=== PATIENT | male | born 1995 | race African-American/Black ===

== ENCOUNTER 2018-05-09 12:07 | Emergency (ER) | payer SELFPAY ==
[2018-05-09 12:58] LABS: #Eosinphils 0.1 thou/uL (0.0-0.7); #Lymphocytes 1.5 thou/uL (1.20-3.40); #Monocytes 0.3 thou/uL (0.11-0.59); #Neutrophils 3.1 thou/uL (1.40-6.50); %Basophils 0.6 % (0.0-1.0); %Eosinophils 1.1 % (0.0-10.0); %Lymphocytes 29.8 % (21.0-51.0); %Monocytes 5.7 % (0.0-10.0); %Neutrophils 62.7 % (42.0-75.0); Hemoglobin 14.3 g/dL (14.0-18.0); Mean Corpuscular HGB CONC 32.6 g/dL (32.0-36.0); Mean Corpuscular Hemoglobin 29.9 pg (27.0-31.0); Mean Corpuscular Volume 91.8 fL (78.0-98.0); Platelet Count 329 thou/uL (130-400); RBC Distribution Width 13.6 % (11.5-14.5); Red Blood Cell (RBC) Count 4.78 mill/uL (4.70-6.10); White Blood Cell (WBC) Count 4.9 thou/uL (4.8-10.8)
[2018-05-09 13:10] LABS: Medtox Reader # READER 1; THC/Cannabinoid Screen Detected (NotDetected)
[2018-05-09 13:11] LABS: Amphetamine Not Detected (NotDetected); Barbiturates Screen Not Detected (NotDetected); Benzodiazepine Screen Not Detected (NotDetected); Cocaine Metabolite Screen Not Detected (NotDetected); Medtox Control Line Valid? VALID (VALID); Methadone Not Detected (NotDetected); Methamphetamine Not Detected (NotDetected); Opiate Screen Not Detected (NotDetected); Oxycodone Screen Not Detected (NotDetected); Phencyclidine (PCP) Detected (NotDetected); Tricyclic Screen Not Detected (NotDetected)
[2018-05-09 13:13] LABS: ALT (SGPT) 37 U/L (8-55); AST (SGOT) 39 U/L (5-34); Albumin 4.5 g/dL (3.5-5.0); Alkaline Phosphatase 57 U/L (40-150); Anion Gap 13 mmol/L (10-20); BUN (Urea Nitrogen) 7 mg/dL (8.9-20.6); Bilirubin, Total 0.6 mg/dL (0.2-1.2); Calc. Creatinine Clearance 0 mL/min (70-130); Calcium 9.8 mg/dL (7.8-10.44); Carbon Dioxide 26 mmol/L (22-29); Chloride 107 mmol/L (98-107); Estimated GFR-MDRD Greater than 90; Globulin 2.7 g/dL (2.4-3.5); Glucose 91 mg/dL (70-105); Potassium 4.4 mmol/L (3.5-5.1); Protein, Total 7.2 g/dL (6.0-8.3); Sodium 142 mmol/L (136-145)
[2018-05-09 13:14] LABS: Acetaminophen Less than 6.0 mcg/mL (10.0-30.0); Alcohol Less than 10 mg/dL (Less than 10); CK (CPK) 1215 U/L (30-200); Salicylate Less than 8.0 mg/dL (15.0-30.0)
--- NOTE | 2018-05-09 13:56 | CT ---
CT BRAIN: Date: 05-09-18 Provided Clinical History: Altered mental status, syncope. FINDINGS: The ventricular system appears normal in size and morphology. There is no evidence for intracranial h emorrhage or mass effect. The extracranial soft tissues and osseous structures demonstrate an unremar kable CT appearance. IMPRESSION: No evidence for intracranial hemorrhage or mass effect. POS: [facility]
--- NOTE | 2018-05-09 13:57 | CT ---
CT CERVICAL SPINE: Date: 05-09-18 Provided Clinical History: Syncope. Throat pain. FINDINGS: There is no evidence for fracture or traumatic subluxation. No prevertebral soft tissue swelling appa rent. Visualized lung apices appear clear. IMPRESSION: No evidence for fracture or traumatic subluxation. POS: [facility]
== END 2018-05-09 14:51 | disposition home or self-care (01) ==
LOC: ERS 12:07
DX: F12.10 Cannabis abuse, uncomplicated (principal); F16.10 Hallucinogen abuse, uncomplicated; F17.210 Nicotine dependence, cigarettes, uncomplicated; F20.9 Schizophrenia, unspecified
CPT/HCPCS: 36415; 70450; 72125; 80053; 80306; 80307; 82550; 84484; 85025

== ENCOUNTER 2018-06-02 19:44 | Inpatient (IN) | payer SELFPAY ==
[2018-06-02] MEDS ORDERED: Midazolam HCl 5 mg/ml Vial ONE (19:59)
[2018-06-02] MEDS ORDERED: KETAMINE 100 MG/ML (5ML VIAL) ONE (20:00)
[2018-06-02] MEDS ORDERED: Rocuronium Bromide 10 MG/ML (10ML VIAL) ONE (20:01)
[2018-06-02] MEDS ORDERED: fentaNYL Citrate/PF 2,000 MCG in Sodium Chloride 0.9% 60 ML IV SCH ×2 (20:02→22:37)
[2018-06-02] MEDS ORDERED: Fentanyl 100 MCG/2 ML VIAL ONE (20:16)
[2018-06-02 20:39] LABS: #Basophils 0.1 thou/uL (0.0-0.2); #Eosinphils 0.1 thou/uL (0.0-0.7); #Monocytes 0.7 thou/uL (0.11-0.59); %Basophils 0.8 % (0.0-1.0); %Eosinophils 1.3 % (0.0-10.0); %Monocytes 10.6 % (0.0-10.0); %Neutrophils 58.2 % (42.0-75.0); Hemoglobin 13.5 g/dL (14.0-18.0); Mean Corpuscular HGB CONC 33.4 g/dL (32.0-36.0); Mean Corpuscular Volume 92.8 fL (78.0-98.0); Mean Platelet Volume 8.9 fL (7.4-10.4); Platelet Count 240 thou/uL (130-400); Red Blood Cell (RBC) Count 4.35 mill/uL (4.70-6.10); White Blood Cell (WBC) Count 6.8 thou/uL (4.8-10.8)
--- NOTE | 2018-06-02 20:41 | RAD ---
CHEST ONE VIEW: 06/02/18 HISTORY: Tube placement. Ketamine overdose. COMPARISON: 12/23/12. FINDINGS: Endotracheal tube beyond the level of the clavicles. Nasogastric tube terminates in the left upper qu adrant. Normal cardiac silhouette. The lungs and pleural spaces are clear. No pneumothorax or osseous abnormalities. IMPRESSION: 1. No acute cardiopulmonary process. 2. Lines and tubes as above. POS: [facility]
[2018-06-02 20:51] LABS: Actual Bicarbonate (HCO3a) 26.3 mEq/L (22-28); Analyzer IN Cardio ER; Base Excess (BEa) 0.3 mEq/L (-2.0 to +3.0); CO2 Tension 48.2 mmHg (35.0-45.0); Calcium, Ionized 1.16 mmol/L (1.12-1.30); Carboxyhemoglobin (COHb) 2.8 gm% (0.0-3.0); Hemoglobin (Hb) 13.1 g/dL (14.0-18.0); O2 Tension (PaO2) 78.6 mmHg (80.0-100.0); Puncture Site RBRACH; pH, Arterial 7.36 (7.35-7.45)
[2018-06-02 20:57] LABS: ALT (SGPT) 74 U/L (8-55); AST (SGOT) 73 U/L (5-34); Albumin 4.1 g/dL (3.5-5.0); Alkaline Phosphatase 54 U/L (40-150); Anion Gap 13 mmol/L (10-20); BUN (Urea Nitrogen) 14 mg/dL (8.9-20.6); Bilirubin, Total 0.5 mg/dL (0.2-1.2); Calc. Creatinine Clearance 0 mL/min (70-130); Calcium 9.5 mg/dL (7.8-10.44); Carbon Dioxide 27 mmol/L (22-29); Chloride 107 mmol/L (98-107); Estimated GFR-MDRD Greater than 90; Globulin 2.4 g/dL (2.4-3.5); Glucose 83 mg/dL (70-105); Magnesium 1.9 mg/dL (1.6-2.6); Potassium 4.6 mmol/L (3.5-5.1); Protein, Total 6.5 g/dL (6.0-8.3); Sodium 142 mmol/L (136-145)
[2018-06-02 21:00] LABS: Acetaminophen Less than 6.0 mcg/mL (10.0-30.0); Alcohol Less than 10 mg/dL (Less than 10); CK (CPK) 2317 U/L (30-200); Salicylate Less than 8.0 mg/dL (15.0-30.0)
--- NOTE | 2018-06-02 21:08 | CT ---
NONCONTRAST HEAD CT 06/02/18 COMPARISON: 05/09/18. HISTORY: Overdose. FINDINGS: No parenchymal hemorrhage. No extra-axial hematoma. No midline shift. Basilar cisterns are patent. Br ain volume, age appropriate. Cortical jenkins-white matter differentiation is preserved. Ventricles and sulci are patent and symmetric. Intact calvarium. IMPRESSION: No acute intracranial process. POS: [facility]
[2018-06-02 21:20] LABS: Bilirubin Small (Negative); Blood, Urine Negative (Negative); Clarity CLEAR (Clear); Glucose, Urine (Dipstick) Negative (Negative); Leukocyte Negative (Negative); Nitrite Negative (Negative); Protein, Urine (Dipstick) Trace mg/dL (Neg-Trace); Specific Gravity, Urine 1.029 (1.002-1.036); pH, Urine 6.5 (5.0-9.0)
[2018-06-02 21:25] LABS: Amphetamine Not Detected (NotDetected); Barbiturates Screen Not Detected (NotDetected); Benzodiazepine Screen Not Detected (NotDetected); Cocaine Metabolite Screen Detected (NotDetected); Medtox Control Line Valid? VALID (VALID); Medtox Reader # READER 4; Methadone Not Detected (NotDetected); Methamphetamine Not Detected (NotDetected); Opiate Screen Not Detected (NotDetected); Oxycodone Screen Not Detected (NotDetected); Phencyclidine (PCP) Detected (NotDetected); THC/Cannabinoid Screen Detected (NotDetected); Tricyclic Screen Not Detected (NotDetected)
[2018-06-02] MEDS ORDERED: Propofol 1,000 MG/100 ML VIAL IV ONE (21:41)
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
[2018-06-02] MEDS ORDERED: Fentanyl BOLUS 250 ML IVPB PRN ×2 (22:15→22:37)
[2018-06-02] MEDS ORDERED: Morphine 2 MG/ML SYRINGE SLOW IVP PRN ×2 (22:15→22:37)
[2018-06-02] MEDS ORDERED: Propofol 1,000 MG/100 ML VIAL IV PRN ×2 (22:15→22:37)
[2018-06-02] MEDS ORDERED: Sodium Chloride 0.45% 1,000 ML IV SCH (22:15)
[2018-06-02] MEDS ORDERED: DISCONTINUE PREVIOUS NARCOTIC PAIN MEDICATIONS AND BENZODIAZEPINES FS SCH ×2 (22:15→22:37)
[2018-06-02] MEDS ORDERED: Propofol BOLUS 1,000 MG/100 ML VIAL IV PRN ×2 (22:15→22:37)
[2018-06-02] MEDS ORDERED: Lorazepam 2 MG/ML VIAL SLOW IVP PRN ×2 (22:15→22:37)
[2018-06-02] MEDS ORDERED: Ventilator Sedation Protocol 1 EACH FS SCH (22:32)
--- NOTE | 2018-06-02 22:43 | PDOC.EVN ---
Event Note - Event Note Event Note: Date/Time: 06/02/18 6617 I personally evaluated the patient and discussed the management with Dr. Biswas and Dr Najera at time of admission. H&P still pending. I will revie wand sign when ready. I agree with the History, Examination, Assessment and Plan as discussed. Acute dilirium/combativeness due to drug use and resulting in rhabdomyelitis. Sedation with mechanical ventilation initiated in the ER. IV fluids resuscitation. Vitals are stable.
[2018-06-02] MEDS: Lactated Ringer's 1,000 ML IV SCH (23:08)
[2018-06-03] MEDS: Lactated Ringer's 1,000 ML IV SCH ×5 (03:14→20:19)
[2018-06-03 05:33] LABS: #Basophils 0.1 thou/uL (0.0-0.2); #Eosinphils 0.1 thou/uL (0.0-0.7); #Lymphocytes 2.6 thou/uL (1.20-3.40); #Monocytes 0.6 thou/uL (0.11-0.59); #Neutrophils 4.8 thou/uL (1.40-6.50); %Basophils 0.6 % (0.0-1.0); %Eosinophils 0.8 % (0.0-10.0); %Lymphocytes 32.2 % (21.0-51.0); %Neutrophils 59.4 % (42.0-75.0); Mean Corpuscular HGB CONC 31.4 g/dL (32.0-36.0); Mean Corpuscular Hemoglobin 29.1 pg (27.0-31.0); Mean Corpuscular Volume 92.8 fL (78.0-98.0); Platelet Count 212 thou/uL (130-400); RBC Distribution Width 14.1 % (11.5-14.5); Red Blood Cell (RBC) Count 4.12 mill/uL (4.70-6.10); White Blood Cell (WBC) Count 8.1 thou/uL (4.8-10.8)
[2018-06-03 05:50] LABS: Anion Gap 13 mmol/L (10-20); BUN (Urea Nitrogen) 10 mg/dL (8.9-20.6); Calc. Creatinine Clearance 191 mL/min (70-130); Calcium 8.6 mg/dL (7.8-10.44); Carbon Dioxide 25 mmol/L (22-29); Chloride 107 mmol/L (98-107); Estimated GFR-MDRD Greater than 90; Glucose 89 mg/dL (70-105); Potassium 3.7 mmol/L (3.5-5.1); Sodium 141 mmol/L (136-145)
[2018-06-03 06:03] LABS: CK (CPK) 5275 U/L (30-200)
[2018-06-03 06:48] LABS: Actual Bicarbonate (HCO3a) 25.2 mEq/L (22-28); Analyzer IN Cardio ER; Base Excess (BEa) 1.5 mEq/L (-2.0 to +3.0); CO2 Tension 36.6 mmHg (35.0-45.0); Calcium, Ionized 1.16 mmol/L (1.12-1.30); Carboxyhemoglobin (COHb) 0.4 gm% (0.0-3.0); O2 Tension (PaO2) 141.5 mmHg (80.0-100.0); Potassium - ABG Lab 3.41 mmol/L (3.70-5.30); pH, Arterial 7.46 (7.35-7.45)
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
[2018-06-03 06:58] LABS: Puncture Site RBA
[2018-06-03] MEDS ORDERED: Enoxaparin Sodium 40 MG/0.4 ML SYRINGE SC SCH (09:00)
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
[2018-06-03] MEDS ORDERED: DC Sedation Protocol FS ONE (10:16)
[2018-06-03] MEDS ORDERED: Acetaminophen 325 MG TAB PO PRN (17:59)
[2018-06-03] MEDS ORDERED: Ondansetron ODT 4 MG TAB PO PRN (17:59)
--- NOTE | 2018-06-03 19:24 | RAD ---
RIGHT SHOULDER THREE VIEWS 06/03/18 INDICATION: Shoulder pain. IMPRESSION: No acute fracture or subluxation is evident. The visualized right lung appears within normal limits. POS: [facility]
[2018-06-04] MEDS: Lactated Ringer's 1,000 ML IV SCH (02:55)
--- NOTE | 2018-06-04 06:17 | PDOC.FM ---
- Subjective Subjective: No overnight events. Has moved to medical floor and feeling much better. Tolerating PO intake. Denies shortness of breath. - Objective MAR Reviewed: Yes Vital Signs & Weight: Vital Signs (12 hours) Temp Pulse Resp BP Pulse Ox 06/04/18 05:19 98.4 F 85 18 115/72 100 06/04/18 00:37 99.3 F 100 18 131/81 97 06/03/18 20:00 99.6 F 98 18 132/77 98 Weight Weight 97.2 kg Most Recent Monitor Data Heart Rate from ECG 92 NIBP 167/107 NIBP BP-Mean 127 Respiration from ECG 22 SpO2 98 I&O: 06/02/18 06/03/18 06/04/18 06:59 06:59 06:59 Intake Total 1642 2597.4 Output Total 735 3430 Balance 907 -832.6 Result Diagrams: 06/04/18 08:06 06/04/18 08:06 Phys Exam - Physical Examination Constitutional: NAD HEENT: moist MMs Neck: supple Respiratory: no wheezing, clear to auscultation bilateral Cardiovascular: RRR, no significant murmur Gastrointestinal: soft, non-tender, positive bowel sounds Musculoskeletal: no edema Neurological: moves all 4 limbs Psychiatric: normal affect, A&O x 3 Skin: cap refill <2 seconds Dx/Plan (1) PCP (phencyclidine) abuse Code(s): F16.10 - HALLUCINOGEN ABUSE, UNCOMPLICATED Status: Acute (2) Rhabdomyolysis Code(s): M62.82 - RHABDOMYOLYSIS Status: Acute (3) Schizophrenia Code(s): F20.9 - SCHIZOPHRENIA, UNSPECIFIED Status: Acute (4) Substance abuse Code(s): F19.10 - OTHER PSYCHOACTIVE SUBSTANCE ABUSE, UNCOMPLICATED Status: Acute - Plan Plan: 23yo male with pmh schizophrenia admitted for acute PCP intoxication and rhabdomyolysis PCP intoxication - Intubated 06/02-3/8 - Off sedation, stable Schizophrenia - Not currently on meds - [facility] referral on discharge Rhabdomyolysis - Patient was found down on road - CK 2300-> 5275. Will recheck prior to d/c - Continue IVF Multidrug abuse - UDS positive for cocaine and marijuana, avoid B-reji Code Status: FULL DVT ppx: SCDs
[2018-06-04 08:33] LABS: #Eosinphils 0.1 thou/uL (0.0-0.7); #Lymphocytes 1.6 thou/uL (1.20-3.40); #Monocytes 0.6 thou/uL (0.11-0.59); #Neutrophils 7.6 thou/uL (1.40-6.50); %Basophils 0.4 % (0.0-1.0); %Eosinophils 0.6 % (0.0-10.0); %Lymphocytes 16.1 % (21.0-51.0); %Monocytes 6.2 % (0.0-10.0); %Neutrophils 76.7 % (42.0-75.0); Hemoglobin 13.7 g/dL (14.0-18.0); Mean Corpuscular HGB CONC 32.3 g/dL (32.0-36.0); Mean Corpuscular Hemoglobin 28.9 pg (27.0-31.0); Mean Corpuscular Volume 89.5 fL (78.0-98.0); Mean Platelet Volume 8.8 fL (7.4-10.4); Platelet Count 243 thou/uL (130-400); RBC Distribution Width 13.9 % (11.5-14.5); Red Blood Cell (RBC) Count 4.73 mill/uL (4.70-6.10); White Blood Cell (WBC) Count 9.9 thou/uL (4.8-10.8)
[2018-06-04 08:59] LABS: ALT (SGPT) 92 U/L (8-55); AST (SGOT) 139 U/L (5-34); Albumin 4.1 g/dL (3.5-5.0); Alkaline Phosphatase 62 U/L (40-150); Anion Gap 13 mmol/L (10-20); BUN (Urea Nitrogen) 6 mg/dL (8.9-20.6); Bilirubin, Total 1.6 mg/dL (0.2-1.2); Calc. Creatinine Clearance 152 mL/min (70-130); Calcium 9.6 mg/dL (7.8-10.44); Carbon Dioxide 26 mmol/L (22-29); Chloride 103 mmol/L (98-107); Estimated GFR-MDRD Greater than 90; Globulin 2.9 g/dL (2.4-3.5); Glucose 143 mg/dL (70-105); Potassium 3.7 mmol/L (3.5-5.1); Sodium 138 mmol/L (136-145)
[2018-06-04 09:05] LABS: CK (CPK) Greater than 4000 U/L (30-200)
[2018-06-04 12:45] VITALS: BP 107/72; TEMP 98.3
--- NOTE | 2018-06-06 11:14 | PRG ---
DATE OF SERVICE: 06/04/2018 ADDENDUM: Please see the note from Dr. Clotilde Piedra, for which I agree. The patient was seen, evaluated, and discussed with the residents by the bedside. This gentleman is fine now and he is extubated. Basically, he is admitted with a PCP and cocaine overdose for which he became violent on and ended up needed to be intubated, but now has been extubated for 24 hours. It sounds like he is back to baseline. There is some question if he may have some underlying schizophrenia or similar, but with residents talked to him and it sounds like more just anger management issues and maybe anxiety but an explosiveness, but nothing really sounds like truly psychosis, but we did get MHMR involved, but his CK is elevated after being down for a long time and then something wrestling a lot when he was violent, but nothing wrong with his kidney function. There is no reason to be worried about, truly rhabdomyolysis. So as long as the MHMR is okay with him going, he should be able to be discharged today. Job ID: [id number]
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
== END 2018-06-04 17:07 | disposition home or self-care (01) | DRG 897 ==
LOC: ERS 19:44 → CCU 22:01 → T4-B 06-03 17:44
PROVIDERS: ADMIT Family Medicine; ATTEND Family Medicine
DX: F16.129 Hallucinogen abuse with intoxication, unspecified (principal); M62.82 Rhabdomyolysis; F20.9 Schizophrenia, unspecified; F14.10 Cocaine abuse, uncomplicated; F12.10 Cannabis abuse, uncomplicated
CPT/HCPCS: 31500; 36415; 51702; 70450; 71045; 80048; 80053; 80306; 80307; 81003; 82550; 82805; 83735; 85025; 93005; 94002; 94003; 94760; 96365; 96366; 96375; 96376; J2250; J2704; J3010; J7050

== ENCOUNTER 2020-09-15 23:53 | Emergency (ER) | payer SELFPAY ==
[2020-09-16] MEDS ORDERED: Boostrix 0.5 ML (Tdap) VIAL ONE (00:12)
[2020-09-16 00:41] LABS: #Basophils 0.1 thou/uL (0.0-0.2); #Lymphocytes 2.1 thou/uL (1.20-3.40); #Monocytes 0.4 thou/uL (0.11-0.59); #Neutrophils 4.9 thou/uL (1.40-6.50); %Basophils 0.8 % (0.0-1.0); %Eosinophils 0.3 % (0.0-10.0); %Lymphocytes 28.4 % (21.0-51.0); %Monocytes 5.6 % (0.0-10.0); %Neutrophils 64.8 % (42.0-75.0); Hemoglobin 14.6 g/dL (14.0-18.0); Mean Corpuscular HGB CONC 34.2 g/dL (32.0-36.0); Mean Corpuscular Hemoglobin 31.3 pg (27.0-31.0); Mean Corpuscular Volume 91.5 fL (78.0-98.0); Mean Platelet Volume 8.7 fL (7.4-10.4); Platelet Count 280 thou/uL (130-400); RBC Distribution Width 13.8 % (11.5-14.5); Red Blood Cell (RBC) Count 4.67 mill/uL (4.70-6.10); White Blood Cell (WBC) Count 7.5 thou/uL (4.8-10.8)
[2020-09-16] MEDS ORDERED: Lidocaine 1% w/Epinephrine 1:100K 20 ML VIAL ONE (01:16)
[2020-09-16] MEDS ORDERED: Bacitracin 1 PK ONE ×2 (02:52)
== END 2020-09-16 03:15 | disposition home or self-care (01) ==
LOC: ERS 23:53
DX: S01.21XA Laceration without foreign body of nose, initial encounter (principal); S01.81XA Laceration without foreign body of other part of head, initial encounter; N18.9 Chronic kidney disease, unspecified; F17.210 Nicotine dependence, cigarettes, uncomplicated; X58.XXXA Exposure to other specified factors, initial encounter
CPT/HCPCS: 12053; 36415; 70450; 70486; 72125; 85025; 90471; 90715